=== PATIENT | female | born 1975 | race Caucasian/White ===

== ENCOUNTER → 2021-11-03 | Outpatient (CLI) | payer OTHER, SELFPAY ==
[2021-11-03 15:58] LABS: Hematocrit 37.9 % (37-47); Hemoglobin 12.3 g/dL (12.0-15.0); Mean Corp Hgb Conc 32.5 g/dL (32-36); Mean Corpuscular Hgb 30.5 pg (27.0-32.0); Platelet Count 272 K/mm3 (150-450); RBC Distribution Width SD 44.6 fl (35.1-43.9); Red Blood Count 4.03 M/mm3 (4.2-5.4); White Blood Count 7.4 K/mm3 (4.4-11.0)
[2021-11-03 16:17] LABS: Follicle Stimulating Hormone 4.1 mIU/mL; Luteinizing Hormone 2.2 mIU/mL; T4 Free Direct 0.73 ng/dL (0.76-1.46); Thyroid Stim Hormone (TSH) 4.21 uIU/mL (0.358-3.74)
[2021-11-10 16:33] LABS: HPV APTIMA, High Risk Positive (Negative)
== END | disposition home or self-care (01) ==
LOC: WOBLAB 15:26
PROVIDERS: Visit Provider Student in an Organized Health Care Education/Training Program
DX: N93.9 Abnormal uterine and vaginal bleeding, unspecified (principal); Z12.4 Encounter for screening for malignant neoplasm of cervix
CPT/HCPCS: 36415; 83001; 83002; 84439; 84443; 85027; 87624; 88175; G0145

== ENCOUNTER → 2021-11-21 | Outpatient (CLI) | payer OTHER, SELFPAY ==
--- NOTE | 2021-11-21 | CER_PTH ---
PATIENT: NINO MONTOYA [id number] AGE/SX: 46/F ROOM: RE11/21/[address]: Dr. Daisha Chawla, : 1975 BED: DIS: 11/21/2021 SPEC #: [id number] RECD: 11/21/21 13:03 STATUS: NIXON VIKTORIYA #: [id number] FRANCA: 11/21/21 00:[address]: Daisha Chawla DEPT: SURGICAL PATHOLOGY RECD BY: Esmer Valdes Tissues: A - Uterine cervix, NOS B - Endocervical Procedures: Surgery Specimen Level IV HEADER OPERATION: Colposcopy PRE-OP DIAGNOSIS: Positive HR HPV TISSUE SUBMITTED: A ? Cervical, B ? Endocervical curettings MICROSCOPIC DIAGNOSIS A. Cervix, biopsy: Fragments of ectocervical mucosa, negative for dysplasia. Mild acute and chronic inflammation. See comment. B. Endocervical curettings: Fragments of ecto- and endocervical mucosa, blood and mucous, negative for dysplasia. RIA:dulce 11/22/2021 COMMENT A. Immunohistochemistry ([id number]) for surrogate HPV marker (p16) supports the above diagnosis. MICROSCOPIC DESCRIPTION Slides are reviewed. GROSS DESCRIPTION A - Received in fixative is one container labeled with the patient's name and designated cervical. The specimen consists of multiple irregular fragments of light yee soft tissue that in aggregate measure 1.2 x 0.3 x 0.2 cm. The specimen is totally submitted in one cassette. B - Received in fixative is one container labeled with the patient's name and designated ECC. The specimen consists of multiple irregular fragments of yee mucoid tissue that in aggregate measure 2.5 x 1 x 0.1 cm. The specimen is totally submitted in one cassette. / RIA:dulce 11/21/2021 TC:3 CPT: 87884 x2
--- NOTE | 2021-11-21 | IMM_PTH ---
PATIENT: NINO MONTOYA [facility]: [facility] U#:[id number] AGE/SX: 46/F ROOM: RE11/21/[address]: Dr. Daisha Chawla DO : 1975 BED: DIS: 11/21/2021 SPEC #: [id number] RECD: 11/22/21 13:41 STATUS: NIXON REQ #: [id number] FRANCA: 11/21/21 00:[address]: Daisha Chawla DEPT: IMMUNOHISTOCHEMISTRY RECD BY: Payton Cabrera Tissues: A - Uterine cervix, NOS Procedures: p16 (initial) KI-67 (add) PHYSICIAN & INSTITUTION [place] [id number] SPECIMEN INFORMATION: Tissue Source: A ? Cervical biopsy Clinical Info: Positive HR HPV Specimen Number: [id number] CPT code: 65045, 44996 METHODOLOGY: Deparaffinized sections of prefer/formalin-fixed tissue or PAP/DQ stained slides are incubated with monoclonal/polyclonal antibodies/oligonucleotide probes. Localization is made via biotin free immunoperoxidase method. Appropriate controls are performed and reacted as expected. Results on target cell population are indicated in the following table: RESULTS: ANTIBODY / CLONE RESULT Block A P16 (E6H4) negative Ki-67 (30-9) positive, very low These tests were developed and their performance characteristics determined by [facility]. They may not have been cleared or approved by the U.S. Food and Drug Administration. The FDA has determined that such clearance or approval is not necessary. The above immunohistochemical/dualISH markers are ordered and reviewed by the Pathologist. INTERPRETATION: A. Cervix, biopsy: Negative for dysplasia. SJ:dulce 11/23/2021
== END | disposition home or self-care (01) ==
PROVIDERS: Visit Provider Student in an Organized Health Care Education/Training Program
DX: R87.810 Cervical high risk human papillomavirus (HPV) DNA test positive (principal); N72 Inflammatory disease of cervix uteri
CPT/HCPCS: 88305; 88341; 88342

== ENCOUNTER 2021-11-29 16:07 | Inpatient (IN) | payer OTHER, SELFPAY ==
[2021-11-24 16:34] LABS: Hematocrit 36.4 % (37-47); Hemoglobin 11.6 g/dL (12.0-15.0); Mean Corp Hgb Conc 31.9 g/dL (32-36); Mean Corpuscular Hgb 29.7 pg (27.0-32.0); Mean Corpuscular Volume 93.3 fL (81-99); Platelet Count 344 K/mm3 (150-450); RBC Distribution Width CV 12.7 % (11.6-14.6); RBC Distribution Width SD 43.3 fl (35.1-43.9); White Blood Count 9.9 K/mm3 (4.4-11.0)
[2021-11-29 16:49] VITALS: BMI 25.9
--- NOTE | 2021-11-29 16:50 | EKG12_ITS ---
Test Reason : Blood Pressure : / mmHG Vent. Rate : 087 BPM Atrial Rate : 087 BPM P-R Int : 138 ms QRS Dur : 084 ms QT Int : 368 ms P-R-T Axes : 038 041 055 degrees QTc Int : 442 ms Normal sinus rhythm Normal ECG No previous ECGs available Confirmed by AUDREY DOUGLAS, NICOLAS ([id number]), technical editor HAMZAH PETIT ([id number]) on 12/06/2021 11:15:22 AM Referred By: TOMÁS Confirmed By:NICOLAS VENTURA MD
--- NOTE | 2021-11-29 16:56 | PCM.HP.BLA ---
History and Physical Date of Admission: 11/29/21 HPI: 46-year-old female with acute blood loss anemia secondary to vaginal bleeding. Patient has had heavy bleeding for several weeks. She was planned for hysteroscopy, dilation and curettage, endometrial ablation on 12/01/2021. However her bleeding worsened this past weekend. Patient had colposcopy approximately 1 week ago. Bleeding was a little bit heavier after this, however increased greatly over the weekend. She had stopped progesterone tablet last week.Large blood clots. Changing pads multiple times per day. States she went through 24 overnight pads since yesterday. Patient had hemoglobin/hematocrit done in office today with a hemoglobin of 7.3. This is a decrease from 11.6 last week. She is having dizziness with standing. Denies syncope. Reports tachycardia. This becomes uncomfortable when she is standing. Denies dyspnea. Reports nausea without vomiting. Denies fevers or chills, diarrhea or constipation. Medical history: 1. Hypothyroidism. Newly diagnosed on Synthroid. Surgical history: Denies Medications: 1. Medroxyprogesterone 2. Synthroid. Social history: Denies tobacco, alcohol, drug use Family history: Noncontributory Allergies: No known drug allergies Review of system: Negative otherwise stated above Physical exam: Vitals: Pending HEENT: Normocephalic/atraumatic, PERRLA. Slight pallor. Cardiac: Slightly tachycardic, regular rhythm no murmurs or rubs or gallops Lungs: Clear to auscultation bilaterally Abdomen: Soft, nontender, nondistended, bowel sounds present Extremities: No edema Neurologic: No focal deficits, cranial nerves II through XII grossly intact Musculoskeletal: Strength 5 out of 5 throughout all extremities Labs on 11/29/2021: Hemoglobin/hematocrit 7.3/23.3 Assessment/plan: 46-year-old female admitted with acute blood loss anemia secondary to vaginal bleeding. ?Increase in bleeding likely exacerbated by withdrawal from progesterone. Patient had stopped because it did not seem as though it had been helping decrease bleeding. As surgery was close in proximity, decision to stop was made. Unlikely secondary to recent colposcopic biopsy. ?Type and cross, transfuse 2 units of packed red blood cells. Repeat CBC in the morning. ?Start medroxyprogesterone 20 mg p.o. every 8 hours to help slow bleeding ?Nausea control with Zofran. Pain controlled with Tylenol and oxycodone as needed. ?EKG to be done due to anemia, preop. ?Plan for hysteroscopy, dilation and curettage, ablation tomorrow. Discussed possible hysterectomy if unable to control bleeding with dilation and curettage. Patient amenable to this if needed. Discussed risk/benefits/alternatives. Risk include but are not limited to: Risk of bleeding to the point of transfusion, infection, injury to surrounding tissue including bowel/bladder/uterine perforation/major vessels, VTE, ICU admission. Patient aware. All questions answered. Diet: Clear liquids, n.p.o. at midnight IV fluid: LR 125 cc/h after transfusion of blood VTE prophylaxis: SCDs Activity: Up with assistance to restroom Dispo: Admit overnight for transfusion, plan for surgery tomorrow.
[2021-11-29] MEDS: Lactated Ringers 1,000 ML 125 ML IV (17:29)
[2021-11-29 17:35] VITALS: BP 125/89; PULSE 95; RESP 18; TEMP 37.1; O2SAT 100
[2021-11-29] MEDS: MEDROXYPROGESTERONE ACETATE 10 MG TABLET 20 MG PO (18:53)
[2021-11-29 21:20] VITALS: BP 130/77; PULSE 104; RESP 18; TEMP 37.1; O2SAT 100
[2021-11-29] MEDS: Acetaminophen 325 MG Tablet 650 MG PO (21:34)
[2021-11-29] MEDS: oxyCODONE 5 MG Tablet PO (21:35)
[2021-11-29 21:39] VITALS: BP 127/72; PULSE 90; RESP 18; TEMP 36.6; O2SAT 99
[2021-11-29 22:41] VITALS: BP 97/48; PULSE 77; RESP 18; TEMP 36.6; O2SAT 100
[2021-11-29] MEDS: 0.9% Saline Lock 10 ML Syringe IV (23:25)
[2021-11-29] MEDS: Ondansetron 4 MG/2 ML Vial IV (23:25)
[2021-11-29 23:30] VITALS: BP 103/59; PULSE 72; RESP 18; TEMP 36.9; O2SAT 97
[2021-11-29 23:45] VITALS: BP 99/55; PULSE 86; RESP 18; TEMP 36.8; O2SAT 100
[2021-11-30] VITALS (14 sets, daily range): BP systolic 90–147; BP diastolic 47–84; PULSE 64–82; RESP 16–18; TEMP 36.6–37.6; O2SAT 96–100; BMI 25.7
--- NOTE | 2021-11-30 | EMB_PTH ---
PATIENT: NINO MONTOYA LOC: [facility] U#:[id number] AGE/SX: 46/F ROOM: ME317 RE11/29/[address]: Dr. 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 Transition endometrium. Chronic endometritis. AM:dulce 12/02/2021 MICROSCOPIC DESCRIPTION Slides are reviewed. GROSS DESCRIPTION Received in fixative is one container labeled with the patient's name and designated endometrial curettings. The specimen consists of multiple irregular fragments of light yee soft tissue that in aggregate measure 2.2 x 2 x 0.2 cm. The specimen is totally submitted in one cassette. / AM:dulce 12/01/2021 TC:3 CPT: 42181
[2021-11-30] MEDS: Lactated Ringers 1,000 ML 125 ML IV ×4 (01:10→20:13)
[2021-11-30] MEDS: MEDROXYPROGESTERONE ACETATE 10 MG TABLET 20 MG PO ×3 (05:53→22:52)
--- NOTE | 2021-11-30 06:52 | PCM.PN.OB ---
Subjective Subjective Patient feeling tired. Still having some dizziness with standing and ambulation. Able to ambulate without assistance restroom. Bleeding slightly improved. Clots are smaller this morning. Is having some cramping. No chest pain. Objective Data Objective Data Vital Signs: Vital Signs Temp Pulse Resp BP Pulse Ox O2 Del Method 98.3 F 82 18 104/54 L 99 Room Air 11/30/21 05:51 11/30/21 05:51 11/30/21 05:51 11/30/21 05:51 11/30/21 05:51 11/30/21 05:51 Oxygen Delivery Method Room Air Weight: 68.4 kg Body Mass Index (BMI) 25.9 Intake & Output: Intake and Output for Last 24 Hours 11/28/21 11/29/21 11/30/21 23:59 23:59 23:59 Intake Total 1152.5 / 1152.5 400 / 400 Balance 1152.5 / 1152.5 400 / 400 Lab / Micro Data Attestation: I reviewed the patient's lab results. Result Diagrams: 11/24/21 15:55 Labs: Laboratory Results - last 24 hr 11/29/21 17:28: Blood Type B POSITIVE, Antibody Screen NEGATIVE, Crossmatch See Detail Physical Exam Const alert, oriented x3 and no apparent distress HEENT normocephalic Head and Scalp: atraumatic Eyes PERRL Resp normal respiratory effort, no use of accessory muscles and clear to auscultation bilaterally Cardio regular rate and regular rhythm GI normal to inspection, nondistended, normoactive bowel sounds Narrative: Small amount of blood on pad. Patient just returning from restroom, had not changed pad at that time. Extremity no pedal edema Assessment & Plan (1) Abnormal uterine bleeding: PLAN: Admission day 2 for acute blood loss anemia secondary to vaginal bleeding. ?Patient has received 2 units of packed red blood cells. CBC pending. Likely will need additional units of blood. ? Continue medroxyprogesterone 20 mg every 8 hours ? Continue IV fluid hydration. ? Plan for hysteroscopy, dilation and curettage, endometrial ablation today ?Continue Synthroid for hypothyroidism Diet: NPO aside from progesterone tablets IV fluid: LR 125 cc/h DVT prophylaxis: SCDs Dispo: Plan for surgery today (2) Acute blood loss anemia:
[2021-11-30 06:56] LABS: Absolute Lymphocyte Count 2.57 X10^3/uL (0.83-4.51); Absolute Neutrophil Count 5.3 X10^3/uL (2.0-7.7); Basophil# 0.09 X10^3/uL; Eosinophil# 0.27 X10^3/uL; Eosinophils% 3.1 % (0-5); Hematocrit 25.4 % (37-47); Hemoglobin 8.3 g/dL (12.0-15.0); Lymphocyte # 2.57 X10^3/ul (0.83-4.51); Lymphocyte % 29.2 % (19-41); Mean Corp Hgb Conc 32.7 g/dL (32-36); Mean Corpuscular Volume 91.7 fL (81-99); Mean Platelet Vol. 12.1 fl (6.2-12.0); Monocyte# 0.54 X10^3/uL; Monocyte% 6.1 % (0-10); NRBC Flagged by Analyzer 0 % (0-5); Neutrophil # 5.28 X10^3/uL (2.7-7.7); Neutrophil % 60.1 % (47-70); Platelet Count 212 K/mm3 (150-450); RBC Distribution Width CV 13.1 % (11.6-14.6); Red Blood Count 2.77 M/mm3 (4.2-5.4); White Blood Count 8.8 K/mm3 (4.4-11.0)
[2021-11-30] MEDS: 0.9% Saline Lock 10 ML Syringe IV (10:25)
[2021-11-30] MEDS: HYDROmorphone 0.5 MG/0.5 ML SYRINGE IV ×2 (10:25→15:49)
--- NOTE | 2021-11-30 10:52 | CASEMGMT ---
RN CM Face to Face with patient for initial transition planning/care coordination assessment. RN CM introduced self and role at [facility]. Patient lying in bed, alert and oriented, at bedside. Patient willing to participate in assessment and is able to answer all questions appropriately. Care providers, pharmacy, and demographics verified. Patient wishes to discharge home, denies need for home health at this time. Patient states she has no further needs or concerns at this time. CM to follow for discharge planning needs that may arise. PCP: No PCP, list provided to patient Specialists: BRAVO Chawla Preferred Pharmacy: [facility] retail at discharge. Insurance: MMO Prescription Benefit: yes Living Will/HPOA: yes, JONATHON Jaquez LNOK: Living Arrangements: Patient lives with in a tri-level home with 6-8 steps between levels. Patient states she was independent and able to ambulate the stairs prior to surgery Transportation: self, DME/HHC: Patient denies DME in the home. No previous HHC Disposition Plan: Patient to discharge home with family support and follow-up plans in place. Kenyetta MCKEON, RN, CM
[2021-11-30] MEDS: Sodium Citrate/Citric Acid 30 ML UDC PO (13:00)
[2021-11-30] MEDS: Pantoprazole Sodium 40 MG Tablet PO (13:00)
--- NOTE | 2021-11-30 13:39 | PCM.OPRPT ---
Report of Operation Date of Procedure: 11/30/21 Pre-Operative Diagnosis: Abnormal vaginal bleeding, acute blood loss anemia Post-Operative Diagnosis: Abnormal vaginal bleeding, acute blood loss anemia Surgery/Procedure Performed:: Hysteroscopy, dilation and curettage, endometrial ablation with Kina Description of Surgical Findings:: Normal-appearing external genitalia. Moderate uterine descensus. Thickened endometrial lining. Colposcopic biopsy bed at 4 o'clock position well-healing and not actively bleeding. Other biopsy beds healed. Type of Anesthesia: MAC Specimen's removed: Endometrial curettings Estimated Blood Loss (mL): 25 cc Fluids Replaced: 700 cc Description of Procedure: Indication/risk/benefits: 46-year-old female with abnormal uterine bleeding acute blood loss anemia plan for hysteroscopy, dilation and curettage, endometrial ablation with Kina. All risk, benefits, alternatives discussed with patient. Risk include but are not limited to transfusion, infection, injury to surrounding tissue including bowel/bladder/uterine perforation, VTE, ICU admission. Patient were consented. Procedure: Patient taken to the operating room and MAC anesthesia induced. Patient placed in dorsal lithotomy position prepped and draped in usual sterile fashion. Weighted speculum placed in posterior vagina and Arreola retractor used to visualize the cervix. Anterior lip of the cervix grasped with Allis clamp. Cervix already dilated. Uterus sounded to 9 cm. Hysteroscope placed through cervical canal and endometrial cavity inspected with above findings. Cervical length 4.5 cm. Hysteroscope removed. Endometrial curettings completed in 360 degree manner. Kina device opened. Cavity length set to 4.5 cm. Kina deployed. As the cervix was already dilated there was some CO2 leakage through this. Additional Allis clamp placed around the cervix, and additional 3 cc air placed through cervical balloon. CO2 assessment passed. Cavity assessments passed. Ablation initiated and completed. Kina device removed. Allis clamps removed. No active bleeding noted from the cervix and uterus. Weighted speculum and Arreola retractor removed. At the end of the procedure all needle, lap, sponge counts were correct. Urine output: 25 cc Complications None
[2021-11-30] MEDS: Ondansetron 4 MG/2 ML Vial IV (15:49)
[2021-11-30] MEDS: Acetaminophen 500 MG Tablet 1000 MG PO ×2 (17:42→22:52)
[2021-11-30 17:56] LABS: Absolute Neutrophil Count 5.9 X10^3/uL (2.0-7.7); Basophil# 0.06 X10^3/uL; Basophil% 0.7 % (0-1); Eosinophils% 2.2 % (0-5); Hematocrit 28.9 % (37-47); Hemoglobin 9.5 g/dL (12.0-15.0); Lymphocyte % 25.8 % (19-41); Mean Corp Hgb Conc 32.9 g/dL (32-36); Mean Corpuscular Hgb 29.6 pg (27.0-32.0); Mean Platelet Vol. 11.6 fl (6.2-12.0); Monocyte# 0.38 X10^3/uL; Monocyte% 4.3 % (0-10); NRBC Flagged by Analyzer 0 % (0-5); Neutrophil # 5.93 X10^3/uL (2.7-7.7); Neutrophil % 66.7 % (47-70); Platelet Count 201 K/mm3 (150-450); RBC Distribution Width CV 13.9 % (11.6-14.6); RBC Distribution Width SD 46.2 fl (35.1-43.9); Red Blood Count 3.21 M/mm3 (4.2-5.4); White Blood Count 8.9 K/mm3 (4.4-11.0)
[2021-11-30] MEDS: Ibuprofen 600 MG Tablet PO (20:13)
[2021-12-01] MEDS: Ibuprofen 600 MG Tablet PO ×3 (03:12→14:00)
[2021-12-01 03:13] VITALS: BP 99/66; PULSE 67; RESP 18; TEMP 36.9; O2SAT 98
[2021-12-01] MEDS: Lactated Ringers 1,000 ML 125 ML IV ×2 (03:13→11:55)
[2021-12-01] MEDS: MEDROXYPROGESTERONE ACETATE 10 MG TABLET 20 MG PO (05:57)
[2021-12-01] MEDS: Acetaminophen 500 MG Tablet 1000 MG PO ×2 (05:57→11:54)
[2021-12-01] MEDS: Levothyroxine 25 MCG TABLET PO (05:57)
[2021-12-01 06:30] LABS: Hematocrit 28.3 % (37-47); Hemoglobin 9.2 g/dL (12.0-15.0); Mean Corp Hgb Conc 32.5 g/dL (32-36); Mean Corpuscular Hgb 29.8 pg (27.0-32.0); Mean Corpuscular Volume 91.6 fL (81-99); Mean Platelet Vol. 11.8 fl (6.2-12.0); Platelet Count 189 K/mm3 (150-450); RBC Distribution Width CV 13.8 % (11.6-14.6); RBC Distribution Width SD 46.5 fl (35.1-43.9); Red Blood Count 3.09 M/mm3 (4.2-5.4); White Blood Count 7.8 K/mm3 (4.4-11.0)
[2021-12-01 07:14] VITALS: O2SAT 95
--- NOTE | 2021-12-01 07:32 | PN.OBGYN_ITS ---
Subjective Subjective Patient feeling very tired today. Spotting on pad. Bleeding improved. Very hungry, tolerating p.o. Voiding well. Objective Data Objective Data Vital Signs: Vital Signs Temp Pulse Resp BP Pulse Ox O2 Del Method 98.4 F 67 18 99/66 95 Room Air 12/01/21 03:13 12/01/21 03:13 12/01/21 03:13 12/01/21 03:13 12/01/21 07:14 12/01/21 07:14 Oxygen Delivery Method Room Air Weight: 68.4 kg Body Mass Index (BMI) 25.7 Intake & Output: Intake and Output for Last 24 Hours 11/29/21 11/30/21 12/01/21 23:59 23:59 23:59 Intake Total 1152.5 / 1152.5 3025 / 3025 875 / 875 Output Total Balance 1152.5 / 1152.5 3000 / 3000 875 / 875 Lab / Micro Data Attestation: I reviewed the patient's lab results. Result Diagrams: 12/01/21 05:55 Labs: Laboratory Results - last 24 hr 11/29/21 19:28: Crossmatch See Detail 11/30/21 06:01: TSH 9.60 H 11/30/21 17:30: WBC 8.9, RBC 3.21 L, Hgb 9.5 L, Hct 28.9 L, MCV 90.0, MCH 29.6, MCHC 32.9, RDW Std Deviation 46.2 H, RDW Coeff of Jennifer 13.9, Plt Count 201, MPV 11.6, Immature Gran % (Auto) 0.300, Neut % (Auto) 66.7, Lymph % (Auto) 25.8, [place] % (Auto) 4.3, Eos % (Auto) 2.2, Baso % (Auto) 0.7, Absolute Neuts (auto) 5.9, Absolute Lymphs (auto) 2.30, Nucleated RBC % 0 12/01/21 05:55: WBC 7.8, RBC 3.09 L, Hgb 9.2 L, Hct 28.3 L, MCV 91.6, MCH 29.8, MCHC 32.5, RDW Std Deviation 46.5 H, RDW Coeff of Jennifer 13.8, Plt Count 189, MPV 11.8 Physical Exam Const alert, oriented x3 and no apparent distress Neck full ROM Neck Narrative: Hypertonic muscle on left paracervical muscles. Tender to palpation on musculature. No gross deformities of neck. Chest inspection of chest normal Resp normal respiratory effort and clear to auscultation bilaterally Cardio regular rate and regular rhythm GI normal to inspection, nondistended, normoactive bowel sounds Narrative: Scant blood on pad Extremity no pedal edema Neuro moves all extremities, no focal motor deficits and no sensory deficits noted Psych mental status grossly normal and affect normal Assessment & Plan (1) Acute blood loss anemia: PLAN: Postop day 1 status post hysteroscopy, dilation and curettage, endometrial ablation with Kina. ?Bleeding resolved. ?Hemoglobin stable this morning. Patient is status post 3 units total PRBC ?Patient very tired, reports some dizziness, however overall less. ?Continued on medroxyprogesterone 20 mg daily 8 hours. We will continue forward 3 days, then taper to 10 mg every 8 hours for 2 days, then 10 mg every 12 hours for 2 days, 10 mg once daily for 2 days. Then stop. ?TSH elevated yesterday compared to lab draw in October. We will repeat next week. Continue Synthroid 25 mcg at this time. ?Patient to sit in chair today, ambulate. Desires home-going. We will discharge home if feeling well this afternoon. (2) Abnormal uterine bleeding:
--- NOTE | 2021-12-01 07:38 | PCM.DC ---
Discharge Instructions Diet Discharge Diet: No restrictions Activity Discharge Activity: Return to Normal Activity and May Shower May resume sexual activity in: 2 weeks Weight Bearing Status: Weight bearing as tolerated Lifting Restrictions: None Dressing / Incision Call your doctor if you observe: Fever of 101 or Higher, Change in Color, Inability to urinate, Using more than 1 pad per hour, Shortness of breath, Dizziness, Swelling in the ankles, Chest pain and Calf discomfort Follow Up Care Please Follow Up With: Daisha Chawla DO When: 1 week postoperative visit Test Results: Test results from this visit will be discussed in further detail at your follow-up appointment, if applicable. Discharge Plan Admission Admit Date/Time: 11/29/21 16:07 Primary Reason for Your Visit: Abnormal uterine bleeding, acute blood loss anemia Attending Provider: Daisha Chawla Discharge Orders/Prescriptions Prescriptions: New medroxyprogesterone [Provera] 10 mg Tablet 20 mg PO Q8 10 Days Qty: 60 0RF Rx Instructions: 20 mg daily 8 hours for 3 days, then 10 mg every 8 hours for 2 days, then 10 mg every 12 hours for 2 days, 10 mg once daily for 2 days oxycodone 5 mg Tablet 5 mg PO Q6H PRN PRN (Reason: Pain Score 6-10) 3 Days Qty: 10 0RF Continued levothyroxine 25 mcg Tablet 25 mcg PO DAILY Energy Formula Tablet 2 tab PO DAILY Other Ambulatory Orders: ,Urine (Routine) Timeframe: 20211201 Facility: [facility] - Location: Laboratory Ordered By: Dr. Scar Sauceda Disposition Disposition (needs filled in before D/C Order can be placed): Home, Self Care
[2021-12-01 08:19] VITALS: BP 112/65; PULSE 74; RESP 18; TEMP 36.8; O2SAT 98
[2021-12-01 13:58] VITALS: BP 108/67; PULSE 71; RESP 18; TEMP 37.1; O2SAT 99
== END 2021-12-01 15:55 | disposition home or self-care (01) | DRG 742 ==
PROVIDERS: Anesthesiology; Admitting Provider Student in an Organized Health Care Education/Training Program; Visit Provider Student in an Organized Health Care Education/Training Program
PROC: 0U5B8ZZ Destruction of Endometrium, Via Natural or Artificial Opening Endoscopic (ICD-10-PCS; CPT 58558; principal; 2021-11-30 13:30)
DX: N93.9 Abnormal uterine and vaginal bleeding, unspecified (principal); D62 Acute posthemorrhagic anemia; E03.9 Hypothyroidism, unspecified; K21.9 Gastro-esophageal reflux disease without esophagitis; Z79.899 Other long term (current) drug therapy; Z79.890 Hormone replacement therapy
CPT/HCPCS: 36415; 84443; 85025; 85027; 86850; 86900; 86901; 86920; 86922; 88305; 93005; J7040; J7120; P9016; A4216; J2405

== ENCOUNTER → 2021-11-29 | Outpatient (CLI) | payer OTHER, SELFPAY ==
[2021-11-29 14:17] LABS: Hematocrit 23.3 % (37-47); Hemoglobin 7.3 g/dL (12.0-15.0)
== END | disposition home or self-care (01) ==
LOC: WOBLAB 13:04
PROVIDERS: Visit Provider Student in an Organized Health Care Education/Training Program
DX: N93.9 Abnormal uterine and vaginal bleeding, unspecified (principal)
CPT/HCPCS: 36415; 85014; 85018

== ENCOUNTER → 2021-12-09 | Outpatient (CLI) | payer OTHER, SELFPAY ==
[2021-12-09 15:56] LABS: Hemoglobin 12.2 g/dL (12.0-15.0); Mean Corp Hgb Conc 32.1 g/dL (32-36); Mean Corpuscular Hgb 29.4 pg (27.0-32.0); Mean Corpuscular Volume 91.6 fL (81-99); Mean Platelet Vol. 11.4 fl (6.2-12.0); Platelet Count 417 K/mm3 (150-450); RBC Distribution Width CV 13.2 % (11.6-14.6); RBC Distribution Width SD 44.4 fl (35.1-43.9); Red Blood Count 4.15 M/mm3 (4.2-5.4); White Blood Count 10.5 K/mm3 (4.4-11.0)
[2021-12-09 16:20] LABS: T4 Free Direct 0.93 ng/dL (0.76-1.46); Thyroid Stim Hormone (TSH) 2.45 uIU/mL (0.358-3.74)
== END | disposition home or self-care (01) ==
LOC: WOBLAB 15:36
PROVIDERS: Visit Provider Student in an Organized Health Care Education/Training Program
DX: E03.9 Hypothyroidism, unspecified (principal); D64.9 Anemia, unspecified
CPT/HCPCS: 36415; 84439; 84443; 85027

== ENCOUNTER → 2023-03-29 | Outpatient (CLI) | payer OTHER, SELFPAY ==
[2023-03-29 10:29] LABS: Free T3 2.3 pg/mL (2.18-3.98); T4 Free Direct 0.76 ng/dL (0.76-1.46); Thyroid Stim Hormone (TSH) 2.76 uIU/mL (0.358-3.74)
[2023-03-30 04:07] LABS: Thyroid Peroxidase AB < 9 IU/mL (0-34)
== END | disposition home or self-care (01) ==
LOC: MTLAB 08:40
PROVIDERS: PCP Internal Medicine; Referring Provider Internal Medicine; Visit Provider Internal Medicine
DX: E03.9 Hypothyroidism, unspecified (principal)
CPT/HCPCS: 36415; 84439; 84443; 84481; 86376